=== PATIENT | male | born 1995 | race Caucasian/White ===

== ENCOUNTER 2016-08-24 13:58 | Emergency (ER) | payer OTHER ==
[2016-08-24] MEDS ORDERED: AZITHROMYCIN 250 MG TABLET PO ONE (15:06)
[2016-08-24] MEDS ORDERED: GENTAMICIN SULFATE 80 MG/2 ML VIAL ONE (15:11)
[2016-08-24] MEDS ORDERED: ONDANSETRON ODT 4 MG TAB.RAPDIS ONE (15:19)
[2016-08-24 15:20] LABS: URINE MUCUS NONE SEEN (Up to 25%); URINE SQUAMOUS EPITHELIAL CELL NONE SEEN (<= 15/hpf)
[2016-08-24 15:27] LABS: URINE COLOR YELLOW
[2016-08-24 15:28] LABS: URINE APPEARANCE CLEAR; URINE BILIRUBIN NEGATIVE (NEGATIVE); URINE BLOOD NEGATIVE (NEGATIVE); URINE GLUCOSE NORMAL (NEGATIVE); URINE KETONE NEGATIVE (NEGATIVE); URINE LEUKOCYTE ESTERASE NEGATIVE (NEGATIVE); URINE NITRITE NEGATIVE (NEGATIVE); URINE PROTEIN NEGATIVE (NEG - TRACE); URINE SPECIFIC GRAVITY > OR = 1.030 (0.001-1.035); URINE UROBILINOGEN 0.2mg/dL (Normal) (NEG-1mg/dL)
[2016-08-24 15:29] LABS: URINE BACTERIA <10 ORGANISMS/hpf (<10/hpf); URINE SPERM PRESENT
--- NOTE | 2016-08-24 15:55 | ER NURSING DOCUMENTATION ---
Nurse's Notes [facility] Name:Jose Hamilton Age:21 yrs Sex:Male :1995 Arrival Date:08/24/2016 Time:13:58 Bed3 Private MD: Diagnosis:Dysuria Presentation: 08/24 14:05 Presenting complaint: Patient states: Requests testing for STD. Had unprotected sex rs with a woman about 5 weeks ago. About 1.5 weeks ago he started having a very small amount of discharge from his penis that is clear and thin, and he also has a sore throat. Denies pain in penis, testicles or abdomen. No F/C, no N/V/D, no pain with urination. Transition of care: patient was not received from another setting of care. 14:05 Acuity: NEREYDA 4 rs 14:05 Method Of Arrival: Private Vehicle rs 14:20 Notified ED Physician of patient's arrival and CC Dr. Sanchez notified. rs Triage Assessment: 14:34 General: Appears in no apparent distress, comfortable, well developed, well nourished, rs well groomed, Behavior is cooperative, pleasant. Pain: Complains of pain in sore throat. Neuro: No deficits noted. Level of Consciousness is awake, alert, Oriented to person, place, time, event. Cardiovascular: No deficits noted. Capillary refill < 3 seconds Pulses are 3+ in right radial artery. Respiratory: No deficits noted. Airway is patent Respiratory effort is even, unlabored, Respiratory pattern is regular, symmetrical, Denies cough, shortness of breath. GI: No deficits noted. Abdomen is flat, non- distended Bowel sounds present X 4 quads. Abd is soft and non tender Denies diarrhea, nausea, vomiting. : Reports discharge from penis that is watery, since 1.5 weeks Denies burning with urination, pain urinary frequency, urgency, Patient is sexually active. Derm: No deficits noted. Skin is pink, warm & dry. Historical: - Allergies: PENICILLINS; - Home Meds: 1. None - PMHx: None; - PSHx: None; - Tetanus: < 10 years. - Ebola Screening: : Patient negative for fever greater than or equal to 101.5 degrees Fahrenheit, and additional compatible Ebola Virus Disease symptoms. Patient denies exposure to infectious person. Patient denies travel to an Ebola-affected area in the 21 days before illness onset. No symptoms or risks identified at this time. . - Immunization history: Unable to Obtain. - Social history: Smoking status: Patient states was never smoker of tobacco. Patient/guardian denies using alcohol. Screenin:40 Infectious Disease Risk HIV Other: He has had unprotected sex with at least one woman. rs Abuse screen: Denies threats or abuse. Nutritional screening: No deficits noted. Assessment: 14:39 See Triage Assessment done by same RN. rs Vital Signs: 14:20 BP 141 / 76; Pulse 88; Resp 20; Temp 98.5; Pulse Ox 96% on R/A; Weight 72.57 kg; Height rs 5 ft. 8 in. (172.72 cm); Pain 2/10; 15:45 BP 121 / 69; Pulse 71; Resp 16; Pulse Ox 95% on R/A; Pain 0/10; rs 14:20 Body Mass Index 24.33 (72.57 kg, 172.72 cm) rs ED Course: 13:59 Patient arrived in ED. arc 14:05 Charlotte Stiles RN is Primary Nurse. rs 14:05 Derrell Sanchez MD is Attending Physician. sc 14:15 Door closed. Noise minimized. Lights dimmed. Verbal reassurance given. rs 14:20 Notified ED Physician of patient's arrival and chief complaint. Dr. Sanchez notified. Arm rs band placed on Bed in low position Call Light in Reach Gowned HOB Elevated Side rails up x1. 14:32 Triage completed. rs 14:41 Valuables Remains with patient. rs Administered Medications: 15:10 Drug: Zofran 4 mg; Route: PO; rs 15:51 Follow up: Response: No adverse reaction rs 15:20 Drug: azithromycin 2 grams; Route: PO; rs 15:50 Follow up: Response: No adverse reaction rs 15:20 Drug: Gentamicin 320 mg; {Note: Given as tw injections in the right and left gluteus..} rs Route: IM; Site: left gluteus; 15:51 Follow up: Response: No adverse reaction rs Point of Care Testing: Urine Dip: 15:16 pH: 6.0; ; Specific [place]: 1.030; Ketones: Negative; Glucose: Negative; Protein: arc Negative; Leukocytes: Negative; Nitrite: Negative ; Blood: Negative; Bilirubin: Negative ; Urobilinogen: Normal 15:26 Other: clear yellow rs Outcome: 15:00 Discharge ordered by . fredy 15:51 Discharged to home ambulatory. rs 15:51 Condition: stable 15:51 Discharge instructions given to patient, Instructed on discharge instructions, follow up and referral plans. medication usage, safe sex practices, Demonstrated understanding of instructions, medications, Prescriptions given X 1. 15:54 Patient left the ED. rs Signatures: Charlotte Stiles RN RN rs Chew, Scott, MD MD sc Chew, Amelia, Reg Reg arc
--- NOTE | 2016-08-24 15:55 | ER PHYSICIAN DOCUMENTATION ---
Physician Documentation [facility] Name:Jose Hamilton Age:21 yrs Sex:Male :1995 Arrival Date:08/24/2016 Time:13:58 Bed3 Private MD: Derrell Aaron Disposition: 08/24/16 15:00 Discharged to Home/Self Care. Impression: Dysuria. - Condition is Good. - Discharge Instructions: Diseases, Sexually Transmitted - URETHRITIS, Male (GC vs. Chlam). - Prescriptions for Doxycycline Hyclate 100 mg Oral Tablet - take 1 tablet by ORAL route every 12 hours; 20 tablet. - Medical Reconciliation form form. - Follow up: Emergency Department; When: As needed; Reason: Worsening of condition. - Problem is new. - Symptoms are unchanged. HPI: 08/24 14:51 This 21 yrs old Male presents to ER via Private Vehicle with complaints of sc Penile Discharge. 14:51 The patient presents with symptoms include purulent penile discharge. Onset: The sc symptom(s)/episode began/occurred 2 day(s) ago. Associated signs and symptoms: Pertinent positives: sore throat. Severity of symptoms: At their worst the symptoms were mild. Historical: - Allergies: PENICILLINS; - Home Meds: 1. None - PMHx: None; - PSHx: None; - Tetanus: < 10 years. - Ebola Screening: : Patient negative for fever greater than or equal to 101.5 degrees Fahrenheit, and additional compatible Ebola Virus Disease symptoms. Patient denies exposure to infectious person. Patient denies travel to an Ebola-affected area in the 21 days before illness onset. No symptoms or risks identified at this time. . - Immunization history: Unable to Obtain. - Social history: Smoking status: Patient states was never smoker of tobacco. Patient/guardian denies using alcohol. ROS: 14:58 Constitutional: Negative for fever, chills, and weight loss. sc Eyes: Negative for injury, pain, redness, and discharge. ENT: Negative for injury, pain, and discharge. Neck: Negative for injury, pain, and swelling. Cardiovascular: Negative for chest pain, palpitations, and edema. Respiratory: Negative for shortness of breath, cough, wheezing, and pleuritic chest pain. Abdomen/GI: Negative for abdominal pain, nausea, vomiting, diarrhea, and constipation. Back: Negative for injury and pain. Skin: Negative for injury, rash, and discoloration. 14:58 Neuro: Negative for headache, weakness, numbness, tingling, and seizure. sc 14:58 : Positive for penile discharge, one partner 5 weeks ago. Exam: Constitutional: This is a well developed, well nourished patient who is awake, alert, and in no acute distress. Head/Face: Normocephalic, atraumatic. Eyes: Pupils equal round and reactive to light, extra-ocular motions intact. Lids and lashes normal. Conjunctiva and sclera are non-icteric and not injected. Cornea within normal limits. Periorbital areas with no swelling, redness, or edema. Abdomen/GI: Soft, non-tender, with normal bowel sounds. No distension or tympany. No guarding or rebound. No evidence of tenderness throughout. 14:58 Skin: Warm, dry with normal turgor. Normal color with no rashes, no lesions, and no sc evidence of cellulitis. 14:58 : CVA tenderness, is absent, Male external genitalia: normal, Bladder: is normal, non-distended, non-tender. Vital Signs: 14:20 BP 141 / 76; Pulse 88; Resp 20; Temp 98.5; Pulse Ox 96% on R/A; Weight 72.57 kg; Height rs 5 ft. 8 in. (172.72 cm); Pain 2/10; 15:45 BP 121 / 69; Pulse 71; Resp 16; Pulse Ox 95% on R/A; Pain 0/10; rs 14:20 Body Mass Index 24.33 (72.57 kg, 172.72 cm) rs MDM: 14:22 Patient medically screened. sc 14:59 Differential diagnosis: UTI, urethritis. Data reviewed: vital signs, nurses notes, lab sc test result(s), and as a result, I will discharge patient, administer antibiotics. Counseling: I had a detailed discussion with the patient and/or guardian regarding: the historical points, exam findings, and any diagnostic results supporting the discharge/admit diagnosis, the need for outpatient follow up, to return to the emergency department if symptoms worsen or persist or if there are any questions or concerns that arise at home. 08/24 15:31 Order name: UA W/ MICRO -CULTURE IF IND EDMS 08/25 06:17 Order name: URINE CULTURE EDMS Dispensed Medications: 15:10 Drug: Zofran 4 mg; Route: PO; rs 15:51 Follow up: Response: No adverse reaction rs 15:20 Drug: azithromycin 2 grams; Route: PO; rs 15:50 Follow up: Response: No adverse reaction rs 15:20 Drug: Gentamicin 320 mg; {Note: Given as tw injections in the right and left gluteus..} rs Route: IM; Site: left gluteus; 15:51 Follow up: Response: No adverse reaction rs Point of Care Testing: Urine Dip: 15:16 pH: 6.0; ; Specific [place]: 1.030; Ketones: Negative; Glucose: Negative; Protein: arc Negative; Leukocytes: Negative; Nitrite: Negative ; Blood: Negative; Bilirubin: Negative ; Urobilinogen: Normal 15:26 Other: clear yellow rs Signatures: Charlotte Stiles RN RN rs Derrell Sanchez MD MD fl
[2016-08-27 13:11] LABS: CHLAMYDIA AMPLIFICATION BCH POSITIVE (NEGATIVE); GONORRHOEAE AMPLIFICATION BCH NEGATIVE (NEGATIVE)
== END 2016-08-24 15:55 | disposition home or self-care (01) ==
LOC: ER 13:58
DX: R30.0 Dysuria (principal); R36.0 Urethral discharge without blood; J02.9 Acute pharyngitis, unspecified
CPT/HCPCS: 81001; 87086; 87798; 96372; 99283; J1580; Q0144